=== PATIENT | male | born 1990 | race Caucasian/White ===

== ENCOUNTER 2018-02-08 21:21 | Inpatient (IN) | payer MEDICAID, OTHER ==
[2018-02-08 21:33] VITALS: O2SAT 98
--- NOTE | 2018-02-08 21:40 | ED PDOC ---
Psych Transfer Clearance - Clearance Statement Clearance Statement: Medical clearance accepted by Dr Her after review of vital signs, lab results and transfer papers on previous shift. Patient clinically stable for psychiatric admission.
[2018-02-08] MEDS ORDERED: DiphenhydrAMINE 50 mg/ml Inj IM PRN (22:01)
[2018-02-08] MEDS ORDERED: Magnesium Hydroxide Susp 30 ml UD PO PRN (22:01)
[2018-02-08] MEDS ORDERED: Alum-Mag Hydrox-Simethicone Susp (30 mL) PO PRN (22:01)
--- NOTE | 2018-02-08 22:55 | PCM.BM ---
<Jayla Markham Tiffanie - Last Filed: 02/08/18 22:54> Treatment Plan Problems - Problems identified on initial assessmt Hopelessness/Helplessness Date Initiated: 02/08/18 Time Initiated: 22:54 Assessment reference: NA Status: Active Treatment assets and liabiliti Patient Assests: cooperative, self-reliant, ADL independent, negotiates basic needs Patient Liabilities: financial problems, poor support system, substance abuse - Milieu Protocol Maintain good personal hygiene: daily Encourage regular showers, daily Remind patient to perform daily oral care Conduct patient checks and document Observation sheet: Q15 minutes Maintain personal safety: every shift Educate patient to report safety concerns to staff, every shift Monitor environment for contraband/sharps Medication safety: Monitor for expected outcome, potential side effects: every shift, Assess barriers to learning: every shift, Assess readiness for medication education: every shift <GabrielleClover - Last Filed: 02/11/18 16:38> Treatment assets and liabiliti Patient Assests: adapts well, cooperative, insightful, motivated, resourceful, self-reliant, ADL independent, physically healthy, good support system, negotiates basic needs Patient Liabilities: live alone (recently homeless), financial problems, relationship conflicts Family Contact Family involvement: Family/SO is involved Family contact: Patient agrees to contact, Family has been contacted by patient Family contact name: [phone] Family contacted how many times per week?: 2 Family contact comment: [employer] Sales Representative to contact family on 02/12 - Goals for Treatment Patient goals for treatment: Patient to continue stabilization on 3NP through medication management and group/supportive therapy. Patient to be encouraged to attend groups regularly to promote self-awareness, sobriety, and improve insight , coping skills and self-esteem. Patient to be provided with referral for appropriate level of aftercare to reduce risk of future hospitalizations and ensure safety in the community. Discharge/Continuing Care - Education Needs Education Needs: Patient Medication, Patient Diagnosis/Disease Process, Patient Coping Skills, Patient Placement options, Patient Community resources, Patient Aftercare Safety Plan - Discharge Discharge Criteria: Tolerates medication w/o severe side effects, Free of Suicidal thoughts, Normal sleep pattern, Ability to care for self, No longer exhibiting s/s of withdrawal, Reduction of target symptoms Discharge to:: Snf, Substance Abuse Rehab, Other ([facility]) - Treatment Team Participation Patient/Family/SO Statement: 02/11/18 16:39 Pt. attended tx team this morning and was able to actively participate in discussion regarding precursors to hospitalization and progress on 3NP. Pt. mostly pleasant, although easily irritable due to withdrawal symptoms. Pt. AOX4 with depressed affect and fair eye contact. Thoughts are clear and connected. Speech: normal rate and tone. Pt. somewhat socially withdrawn but more visible on 3NP than upon admission. Insight into precursors to hospitalization, illness and need for tx is fair. Coping skills/judgment impaired. Pt. denies current SI/ HI and is able to contract for safety on 3NP. Pt. continues to report sxs of depression, anxiety and sleep disturbances. Pt. requesting to have referrals to inpatient rehabs initiated. [employer] Sales Representative provided psychoeducation regarding nature of tx provided on 3NP and explained that referrals will be initiated but that it is not guaranteed that patient will be provided with a rehab bed immediately upon discharge. [employer] Sales Representative explained that in the event that patient is stabilized prior to rehab bed being made available, patient will be discharged with outpatient mental health/substance abuse services and will have to follow-up with rehab referrals independently. Patient expressed understanding of the above and is agreeable. Discussed with Family/SO: No Was Patient/Family/SO present at Treatment Team Meeting: Yes <Olena Grace - Last Filed: 02/12/18 10:21> - Diagnosis (1) Depression Status: Acute Interventions: psychotherapy, pharmacotherapy 02/12/18 10:21
[2018-02-09] MEDS: Multivitamin With Minerals Tab PO SCH (10:21)
--- NOTE | 2018-02-09 10:46 | PCM.PSYCH ---
Initial Psychiatric Evaluation - Initial Psychiatric Evaluation Type of Admission: Voluntary Legal Status: Capacity Chief Complaint (in patient's own words): "I'm depressed and need detox." Patient's Reaction to Hospitalization: HPI: 27 yo male transferred from [facility], where he presented w/ depression w/ suicidal ideation to shoot himself, in the context of heroin (2 bundles/day), crack cocaine and methamphetamine abuse. Patient reports that at this time he does not have active suicidal ideation/plant/ intent. He reports depressed mood, sleep/appetite disturbances, +feelings of hopelessness. Denies AH/VH/paranoia/delusions. PPHx: Multiple past psychiatric admissions, most recent 2 years ago at [facility]. H/o suicide attempt by OD 1 year ago, but was not hospitalized. PMHx: Denies chronic medical conditions ALL: NKDA SHx: Smokes 1.5 PPD, +Heroin/Cocaine/Methamphetamine abuse Current Medications: Active Medications Generic Name Dose Route Start Last Admin Trade Name Freq PRN Reason Stop Dose Admin Acetaminophen 650 mg 02/08/18 22:01 Tylenol 325mg Tab PO Q4 PRN Pain, moderate (4-7) Al Hydrox/Mg Hydrox/Simethicone 30 ml 02/08/18 22:01 Maalox Plus 30 Ml PO Q4 PRN Dyspepsia Clonidine HCl 0.1 mg 02/09/18 01:00 02/09/18 10:22 Catapres PO 02/12/18 01:01 0.1 mg Q8 NIRAV Administration Diphenhydramine HCl 50 mg 02/08/18 22:01 Benadryl IM Q6 PRN Extrapyramidal S/S Unable PO Diphenhydramine HCl 50 mg 02/08/18 22:01 Benadryl PO Q6 PRN Extrapyramidal Symptoms Haloperidol 5 mg 02/08/18 22:01 Haldol PO Q4 PRN Agitation Haloperidol Lactate 5 mg 02/08/18 22:01 Haldol IM Q4 PRN Agitation, Unable to Take PO Ibuprofen 800 mg 02/08/18 22:06 Motrin Tab PO 02/11/18 22:07 Q8 PRN Pain, severe (8-10) Loperamide HCl 2 mg 02/08/18 22:06 02/09/18 10:26 Imodium PO 2 mg QID PRN Administration LBM Lorazepam 2 mg 02/08/18 22:01 Ativan IM Q4 PRN Anxiety/Agitation,Unable PO Lorazepam 1 mg 02/08/18 22:01 02/09/18 10:25 Ativan PO 1 mg Q4 PRN Administration Anxiety/Agitation Magnesium Hydroxide 30 ml 02/08/18 22:01 Milk Of Magnesia PO HS PRN Constipation Multivitamins/Minerals 1 tab 02/09/18 09:00 02/09/18 10:21 Therapeutic-M Tab PO 1 tab DAILY NIRAV Administration Nicotine 1 patch 02/09/18 10:30 Nicoderm Cq TD DAILY NIRAV Sertraline HCl 50 mg 02/09/18 10:45 Zoloft PO DAILY NIRAV Zolpidem Tartrate 5 mg 02/09/18 10:42 Ambien PO HS PRN Insomnia Past Psychiatric History - Past Psychiatric History Previous Treatment History: Inpatient Pertinent Medical Hx (Current Medical&Sleep Prob, Allergies): Allergies Allergy/AdvReac Type Severity Reaction Status Date / Time No Known Allergies Allergy Verified 02/08/18 21:26 Review of Systems - Psychiatric Psychiatric: As Per HPI, Abnormal Sleep Pattern, Anhedonia, Anxiety, Change in Appetite, Depression, Difficulty Concentrating, Mood Swings, Suicidal Ideation Mental Status Examination - Personal Presentation Personal Presentation: Looks stated age - Affect Affect: Constricted, Depressed - Motor Activity Motor Activity: Calm - Reliability in Providing Information Reliability in Providing Information: Fair - Speech Speech: Organized - Mood Mood: Depressed - Formal Thought Process Formal Thought Process: No Impairment - Hallucinations/Delusions Additional comments: NO AH/VH/paranoia/delusions - Obsessions/Compulsions Obsessions: No Compulsions: No - Cognitive Functions Orientation: Person, Place, Situation, Time Sensorium: Alert Attention/Concentration: Attentive Estimate of Intelligence: Average Judgement: Intact, as evidence by: Insight regarding need for hospitalization Memory: Recent intact, as evidence by: Ability to recall events of the day, Remote intact, as evidenced by: Abilit to recall sig. life events, Remote intact , as evidenced by: Ability to recall historical events - Risk Risk: Suicidal, Diminished functioning - Strength & Assets Inventory Strength & Assets Inventory: Family support, Cooperative DSM 5 DX - DSM 5 DSM 5 Diagnosis: Substance induced mood disorder, Cocaine/heroin/methamphetamine use disorders - Recommended/Plan of Treatment Treatment Recommendations and Plan of Treatment: Substance induced mood disorder, Cocaine/heroin/methamphetamine use disorders -Admit to psychiatry unit -Individual and group therapy -Psychoeducation -Start Zoloft 50 mg PO Daily -Nicotine patch -PRN medication to treat opioid withdrawal symptoms and clonidine 0.1 mg Q8hr x 3 days -Disposition planning -No 1:1 indicated at this time Projected ELOS: 5-7 days Discharge Plan and Discharge Criteria: Discharge when patient is psychiatrically stable - Smoking Cessation Smoking Cessation Initiated: Yes
--- NOTE | 2018-02-09 17:55 | CP.PCM.CON ---
History of Present Illness - History of Present Illness History of Present Illness: 27 yo male transferred from [facility] admitted because of depression and suicidal ideation. Review of Systems - Review of Systems All systems: reviewed and no additional remarkable complaints except (aside from those mentioned above, 12 point system review were negative by me) Past Patient History - Past Social History Smoking Status: Heavy Smoker > 10 Cigarettes Daily Alcohol: Occasional Drugs: Opiates (Heroin) - CARDIAC Hx Cardiac Disorders: No - PULMONARY Hx Respiratory Disorders: No - NEUROLOGICAL Hx Neurological Disorder: No - HEENT Hx HEENT Problems: No - RENAL Hx Chronic Kidney Disease: No - ENDOCRINE/METABOLIC Hx Endocrine Disorders: No - HEMATOLOGICAL/ONCOLOGICAL Hx Blood Disorders: No - INTEGUMENTARY Hx Dermatological Problems: No - MUSCULOSKELETAL/RHEUMATOLOGICAL Hx Musculoskeletal Disorders: No - GASTROINTESTINAL Hx Gastrointestinal Disorders: No - GENITOURINARY/GYNECOLOGICAL Hx Genitourinary Disorders: No - PSYCHIATRIC Hx Depression: Yes Hx Substance Use: Yes - SURGICAL HISTORY Hx Surgeries: No - ANESTHESIA Hx Anesthesia: No Meds Allergies/Adverse Reactions: Allergies Allergy/AdvReac Type Severity Reaction Status Date / Time No Known Allergies Allergy Verified 02/08/18 21:26 - Medications Medications: Current Medications Acetaminophen (Tylenol 325mg Tab) 650 mg PO Q4 PRN PRN Reason: Pain, moderate (4-7) Al Hydrox/Mg Hydrox/Simethicone (Maalox Plus 30 Ml) 30 ml PO Q4 PRN PRN Reason: Dyspepsia Clonidine HCl (Catapres) 0.1 mg PO Q8 NIRAV Stop: 02/12/18 01:01 Last Admin: 02/09/18 17:27 Dose: 0.1 mg Diphenhydramine HCl (Benadryl) 50 mg IM Q6 PRN PRN Reason: Extrapyramidal S/S Unable PO Diphenhydramine HCl (Benadryl) 50 mg PO Q6 PRN PRN Reason: Extrapyramidal Symptoms Haloperidol (Haldol) 5 mg PO Q4 PRN PRN Reason: Agitation Haloperidol Lactate (Haldol) 5 mg IM Q4 PRN PRN Reason: Agitation, Unable to Take PO Ibuprofen (Motrin Tab) 800 mg PO Q8 PRN PRN Reason: Pain, severe (8-10) Stop: 02/11/18 22:07 Loperamide HCl (Imodium) 2 mg PO QID PRN PRN Reason: LBM Last Admin: 02/09/18 10:26 Dose: 2 mg Lorazepam (Ativan) 2 mg IM Q4 PRN PRN Reason: Anxiety/Agitation,Unable PO Lorazepam (Ativan) 1 mg PO Q4 PRN PRN Reason: Anxiety/Agitation Last Admin: 02/09/18 10:25 Dose: 1 mg Magnesium Hydroxide (Milk Of Magnesia) 30 ml PO HS PRN PRN Reason: Constipation Multivitamins/Minerals (Therapeutic-M Tab) 1 tab PO DAILY [facility] Last Admin: 02/09/18 10:21 Dose: 1 tab Nicotine (Nicoderm Cq) 1 patch TD DAILY [facility] Last Admin: 02/09/18 13:13 Dose: 1 patch Sertraline HCl (Zoloft) 50 mg PO DAILY [facility] Last Admin: 02/09/18 13:17 Dose: 50 mg Zolpidem Tartrate (Ambien) 5 mg PO HS PRN PRN Reason: Insomnia Physical Exam - Constitutional Appears: No Acute Distress - Head Exam Head Exam: ATRAUMATIC - Eye Exam Eye Exam: absent: Scleral icterus - ENT Exam ENT Exam: Mucous Membranes Moist - Neck Exam Neck exam: Negative for: Meningismus - Respiratory Exam Respiratory Exam: absent: Rales, Rhonchi, Wheezes, Respiratory Distress - Cardiovascular Exam Cardiovascular Exam: REGULAR RHYTHM, +S1, +S2 - GI/Abdominal Exam GI & Abdominal Exam: Soft. absent: Tenderness - Rectal Exam Rectal Exam: Deferred - Extremities Exam Extremities exam: Negative for: calf tenderness, pedal edema - Back Exam Back exam: NORMAL INSPECTION - Neurological Exam Neurological exam: Alert, Oriented x3 - Psychiatric Exam Psychiatric exam: Normal Affect - Skin Skin Exam: Dry, Intact Results - Vital Signs Recent Vital Signs: Last Vital Signs Temp 99.1 F 02/08/18 22:34 Pulse 85 02/08/18 22:36 Resp 20 02/08/18 22:36 BP 130/80 02/09/18 17:27 Pulse Ox 98 02/08/18 21:27 - Labs Labs: Laboratory Results - last 24 hr 02/09/18 02/09/18 07:00 07:30 Triglycerides 78 Cholesterol 139 LDL Cholesterol Direct 77 HDL Cholesterol 36 Thyroxine (T4) 10.0 TSH 3rd Generation 0.08 L RPR Nonreactive Assessment & Plan (1) Depression Status: Acute Comment: psyche is managing (2) Suicidal ideation Status: Acute
[2018-02-10 09:01] LABS: BASO # 0.1 K/uL (0.0-0.2); BASO % 0.9 % (0.0-2.0); EOS % 0.2 % (0.0-4.0); HEMOGLOBIN 15.7 g/dL (12.0-18.0); LYMPH # 2.3 K/uL (1.0-4.3); LYMPH % 15.8 % (20.0-40.0); MEAN CELL VOLUME 90.4 fl (80.0-94.0); MEAN CORPUSCULAR HEMOGLOBIN 29.9 pg (27.0-31.0); MEAN PLATELET VOLUME 7.6 fl (7.2-11.7); MONO # 0.4 K/uL (0.0-0.8); MONO % 2.7 % (0.0-10.0); NEUT # 11.8 K/uL (1.8-7.0); NEUT % 80.4 % (50.0-75.0); RBC 5.26 Mil/uL (4.40-5.90); RED CELL DISTRIBUTION WIDTH 13.4 % (11.5-14.5); WHITE BLOOD COUNT 14.7 K/uL (4.8-10.8)
[2018-02-10] MEDS: Multivitamin With Minerals Tab PO SCH (09:05)
[2018-02-10 09:09] LABS: ALB/GLOB RATIO 1.1 (1.0-2.1); ALBUMIN 4.2 g/dL (3.5-5.0); ALT/SGPT 34 U/L (21-72); AST/SGOT 34 U/L (17-59); BLOOD UREA NITROGEN 10 mg/dl (9-20); CALCIUM 9.7 mg/dL (8.4-10.2); GFR AFRICAN-AMERICAN > 60; GFR NON-AFRICAN AMERICAN > 60
--- NOTE | 2018-02-10 11:33 | PCM.PYCHPN ---
Psychiatric Progress Note - Psychiatric Progress Note Patient seen today, length of contact: Patient evaluated, chart reviewed Patient Chief Complaint: "I'm depressed." Problems Identified/Issues Discussed: Patient reports that he feels anxious and depressed and has opioid withdrawal symptoms (diarrhea, nausea, cramps) and difficulty sleeping at night. No current AH/VH/SI/HI/paranoia/delusions. No adverse effects to medications reported. Medication Change: No Medical Record Reviewed: Yes Consults ordered or reviewed: Medicine consult Mental Status Examination - Cognitive Function Orientation: Person, Place, Situation, Time Attention: WNL Concentration: WNL Association: WNL Fund of Knowledge: [facility] Decription of patient's judgement and insights: Overall Fair I/J; chronic poor I/J re: substance abuse - Mood Mood: Depressed - Affect Affect: Constricted, Depressed - Speech Speech: Appropriate - Formal Thought Process Formal Thought Process: No Impairment Psychotic Thoughts and Behaviors: No AH/VH/paranoia/delusions - Suicidal Ideation Suicidal Ideation: No - Homicidal Ideation Homicidal Ideation: No Goal/Treatment Plan - Goal/Treatment Plan Need for Continued Stay: Severe depression anxiety, Discharge may exacerbated symptoms Progress Toward Problem(s) and Goals/Treatment Plan: Substance induced mood disorder, Cocaine/heroin/methamphetamine use disorders -Individual and group therapy -Psychoeducation -Continue Zoloft 50 mg PO Daily -Nicotine patch -PRN medication to treat opioid withdrawal symptoms and clonidine 0.1 mg Q8hr x 3 days -Disposition planning Estimated Date of D/C: 02/13/18 - Smoking Cessation Smoking Cessation Initiated: Yes
[2018-02-11] MEDS: Multivitamin With Minerals Tab PO SCH (08:42)
--- NOTE | 2018-02-11 15:39 | PCM.PYCHPN ---
Psychiatric Progress Note - Psychiatric Progress Note Patient seen today, length of contact: Patient evaluated, chart reviewed Patient Chief Complaint: I need help with my addiction Problems Identified/Issues Discussed: pt on evaluation with treatment team, reported feeling down anhedonic, low energy, pt continues to have body aches due to opiate withdrawal discussed with pt starting wellbutin for depression and to help with cravings, and to start neurontin for anxiety, pt agreed also discussed referral to inpatient rehab and possible maintenance treatment on discharge, pt agreed pt denied any current suicidal or homicidal ideations, denied perceptual disturbances DSM 5 Symptoms Update: 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 Medication Change: Yes (start wellbutrin) Medical Record Reviewed: Yes Mental Status Examination - Cognitive Function Orientation: Person, Place, Situation, Time Attention: WNL Concentration: WNL Association: WNL Fund of Knowledge: WNL - Mood Mood: Depressed - Affect Affect: Constricted, Depressed - Speech Speech: Soft - Formal Thought Process Formal Thought Process: No Impairment - Suicidal Ideation Suicidal Ideation: No - Homicidal Ideation Homicidal Ideation: No Goal/Treatment Plan - Goal/Treatment Plan Need for Continued Stay: Severe depression anxiety, Discharge may exacerbated symptoms Progress Toward Problem(s) and Goals/Treatment Plan: continue with clonidine and monitor for symptoms and signs of opiate withdrawal d/c zoloft, start wellburin 75mg start neurontin 100mg tid motivational and group therapy Estimated Date of D/C: 02/13/18
[2018-02-12] MEDS: Multivitamin With Minerals Tab PO SCH (09:10)
--- NOTE | 2018-02-12 10:36 | PCM.PYCHPN ---
Psychiatric Progress Note - Psychiatric Progress Note Patient seen today, length of contact: Patient evaluated, chart reviewed Patient Chief Complaint: I still feel down and I could not sleep Problems Identified/Issues Discussed: pt evaluated, continues to report depressed mood with anhedonia and low energy, pt reported poor sleep with early insomnia, discussed with pt increasing dose of wellbutrin and trazodone Motivational therapy provided, pt agrees to join rehab on discharge ptdenied any current suicidal or homicidal ideations, denied perceptual disturbances, no reported side effects of medications DSM 5 Symptoms Update: cocaine induced mood disorder with depressive features polysubstance use disorder Medication Change: Yes (increase wellbutrin) Medical Record Reviewed: Yes Mental Status Examination - Cognitive Function Orientation: Person, Place, Situation, Time Attention: WNL Concentration: WNL Association: WNL Fund of Knowledge: WNL - Mood Mood: Depressed - Affect Affect: Constricted, Depressed - Speech Speech: Soft - Formal Thought Process Formal Thought Process: No Impairment Psychotic Thoughts and Behaviors: pt denied perceptual disturbances, non elicited - Suicidal Ideation Suicidal Ideation: No - Homicidal Ideation Homicidal Ideation: No Goal/Treatment Plan - Goal/Treatment Plan Need for Continued Stay: Severe depression anxiety, Discharge may exacerbated symptoms Progress Toward Problem(s) and Goals/Treatment Plan: increase wellbutrin 100mg daily increase trazodone 100mg qhs neurontin 100mg tid motivational and group therapy Estimated Date of D/C: 02/13/18
[2018-02-13] MEDS: Multivitamin With Minerals Tab PO SCH (08:27)
[2018-02-13 09:05] VITALS: RESP 18
[2018-02-13] MEDS ORDERED: Tuberculin 5 Units/0.1 ml Inj ID ONE (13:21)
--- NOTE | 2018-02-13 15:45 | PCM.PYCHPN ---
Psychiatric Progress Note - Psychiatric Progress Note Patient seen today, length of contact: Patient evaluated, chart reviewed Patient Chief Complaint: I am less depressed Problems Identified/Issues Discussed: pt evaluated, reported mood is less depressed mood, pt reported improved sleep with increasing trazodone , discussed with pt referral to inpatient rehab on discharge Motivational therapy provided, ptdenied any current suicidal or homicidal ideations, denied perceptual disturbances, no reported side effects of medications DSM 5 Symptoms Update: opiateuse disorder cocaine induced mood disorder with depressive features c Medication Change: No Medical Record Reviewed: Yes Mental Status Examination - Cognitive Function Orientation: Person, Place, Situation, Time Attention: WNL Concentration: WNL Association: WN Fund of Knowledge: WNL - Mood Mood: Depressed - Affect Affect: Constricted, Depressed - Speech Speech: Soft - Formal Thought Process Formal Thought Process: No Impairment Psychotic Thoughts and Behaviors: pt denied perceptual disturbances, non elicited - Suicidal Ideation Suicidal Ideation: No - Homicidal Ideation Homicidal Ideation: No Goal/Treatment Plan - Goal/Treatment Plan Need for Continued Stay: Severe depression anxiety, Discharge may exacerbated symptoms Progress Toward Problem(s) and Goals/Treatment Plan: wellbutrin 100mg daily trazodone 100mg qhs neurontin 100mg tid motivational and group therapy Estimated Date of D/C: 02/13/18
[2018-02-14] MEDS: Multivitamin With Minerals Tab PO SCH (09:46)
--- NOTE | 2018-02-14 14:18 | PCM.PYCHPN ---
Psychiatric Progress Note - Psychiatric Progress Note Patient seen today, length of contact: Patient evaluated, chart reviewed Patient Chief Complaint: I feel less depressed but I get anxious Problems Identified/Issues Discussed: pt evaluated, reported mood is less depressed , presenting with brighter affect , pt requesting to do outpatient rehab, discussed with pt referral to maintenance treatment on discharge at [facility] to avoid relapse ,Motivational therapy provided, pt denied any current suicidal or homicidal ideations, denied perceptual disturbances, no reported side effects of medications DSM 5 Symptoms Update: cocaine induced mood disorder opiate use disorder cocaine use disorder Medication Change: No Medical Record Reviewed: Yes Mental Status Examination - Cognitive Function Orientation: Person, Place, Situation, Time Attention: WNL Concentration: WNL Association: WNL Fund of Knowledge: WNL - Mood Mood: Anxious, Neutral - Affect Affect: Constricted, Depressed - Speech Speech: Appropriate, Soft - Formal Thought Process Formal Thought Process: No Impairment Psychotic Thoughts and Behaviors: pt denied perceptual disturbances, non elicited - Suicidal Ideation Suicidal Ideation: No - Homicidal Ideation Homicidal Ideation: No Goal/Treatment Plan - Goal/Treatment Plan Need for Continued Stay: Severe depression anxiety, Discharge may exacerbated symptoms Progress Toward Problem(s) and Goals/Treatment Plan: wellbutrin 100mg daily trazodone 100mg qhs increase neurontin 200mg tid motivational and group therapy Estimated Date of D/C: 02/15/18
[2018-02-15] MEDS: Multivitamin With Minerals Tab PO SCH (08:58)
[2018-02-15 08:59] VITALS: BP 127/64; PULSE 79; TEMP 97.7
--- NOTE | 2018-02-15 10:03 | PCM.PYCHDC ---
Mental Status Examination - Mental Status Examination Orientation: Person, Place, Situation Memory: Intact Mood: Neutral Speech: Appropriate Attention: WNL Concentration: WNL Association: WNL Fund of Knowledge: WNL Formal Thought Process: No Impairment Description of patient's judgement and insight: fair insight and judgment Psychotic Thoughts and Behaviors: pt denied perceptual disturbances, non elicited Suicidal Ideation: No Current Homicidal Ideation?: No Discharge Summary - Discharge Note Reason for Hospitalization: 27 yo male transferred from [facility], where he presented w/ depression w/ suicidal ideation to shoot himself, in the context of heroin ( 2 bundles/day), crack cocaine and methamphetamine abuse. Patient reports that at this time he does not have active suicidal ideation/plant/intent. He reports depressed mood, sleep/appetite disturbances, +feelings of hopelessness. Denies AH/VH/paranoia/delusions. Consultations:: List each consultation separately and include: 1. Reason for request. 2. Findings. 3. Follow-up Summary of Hospital Course include:: 1. Description of specific treatment plan utilized for patients during their course of treatmen. 2. Summarize the time- course for resolution of acute symptoms and/or regressed behaviors. 3. Describe issues identified and worked on during hospitalization. 4. Describe medication utilized. 5. Describe medical problems identified and treated. 6. Reassessment of suicide risk Summary of Hospital Course: pt on dmission was started on clonidine prn for opiate withdrawal, pt was started on wellbutrin for depression uptitrated to 100mg dailt trazodone for insomnia, neurontin for anxiety motivational and group therapy provided on discharge pt was educated about risk of relapse and possible overdose due to chande in tolerance pt on discharge mental status was stable, denied suicidal or homicidal ideations denied perceptual disturbances follow up arranged by case management social worker at [facility] outpatient [facility] - Diagnosis (1) Depression Current Visit: Yes Status: Acute - Final Diagnosis (DSM 5) Condition upon Discharge: GOOD DSM 5: 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
== END 2018-02-15 10:15 | disposition home or self-care (01) | DRG 745 ==
LOC: H.ER 21:21 → H.PSYCH 21:36
PROVIDERS: ADMIT Psychiatry & Neurology Psychiatry; ATTEND Psychiatry & Neurology Psychiatry
PROC: GZ51ZZZ Individual Psychotherapy, Behavioral (ICD-10-PCS; 2018-02-08)
PROC: GZHZZZZ Group Psychotherapy (ICD-10-PCS; principal; 2018-02-13)
DX: F14.14 Cocaine abuse with cocaine-induced mood disorder (principal); F15.10 Other stimulant abuse, uncomplicated; F17.210 Nicotine dependence, cigarettes, uncomplicated; F32.9 Major depressive disorder, single episode, unspecified; F41.9 Anxiety disorder, unspecified; G47.00 Insomnia, unspecified; R45.851 Suicidal ideations; Z79.899 Other long term (current) drug therapy; F11.23 Opioid dependence with withdrawal